=== PATIENT | female | born 1980 | race Caucasian/White ===

== ENCOUNTER 2017-03-05 09:30 | Inpatient (IN) | payer MEDICAID ==
[~2017-03-05] VITALS: Ht 152.4 cm; Wt 60.0 kg
[~2017-03-05 09:30] MED LIST: FERR27TA PO; PREN1TAB49 PO
[2017-03-05] MEDS ORDERED: MISOPROSTOL 200 MCG TAB PR PRN ×2 (10:00→21:30)
[2017-03-05] MEDS ORDERED: LACTATED RINGER'S 1,000 ML IV PRN (10:00)
[2017-03-05] MEDS ORDERED: BUTORPHANOL 2 MG INJ IV PRN ×2 (10:00)
[2017-03-05] MEDS ORDERED: CARBOPROST 250 MCG INJ IM PRN ×2 (10:00→21:30)
[2017-03-05] MEDS ORDERED: OXYTOCIN 30 UNITS/LR 500 ML IV SCH (10:00)
[2017-03-05] MEDS: LACTATED RINGER'S 1,000 ML IV SCH ×3 (10:00→16:47)
[2017-03-05] MEDS ORDERED: METHYLERGONOVINE 0.2 MG INJ IM PRN ×2 (10:00→21:30)
[2017-03-05] MEDS ORDERED: OXYTOCIN 30 UNITS/LR 500 ML IV PRN ×2 (10:00→21:30)
[2017-03-05] MEDS ORDERED: LIDOCAINE 1% (MPF) 30 ML INJ INJ PRN (10:00)
[2017-03-05 10:04] VITALS: BP 105/63; PULSE 57
[2017-03-05 10:12] LABS: ADD SCAN DIFF NO
[2017-03-05 10:18] LABS: BASOPHILS % 0.2 % (0.0-2.0); EOSINOPHILS % 0.4 % (0.0-7.0); HEMATOCRIT 36.8 % (37.0-47.0); HEMOGLOBIN 12.2 g/dl (12.0-16.0); LYMPHOCYTES # 1.5 10^3/ul (0.8-2.9); LYMPHOCYTES % 16.3 % (15.0-51.0); MEAN CORPUSCULAR HEMOGLOBIN 31.8 pg (29.0-33.0); MEAN CORPUSCULAR HGB CONC 33.2 g/dl (32.0-37.0); MEAN CORPUSCULAR VOLUME 95.8 fl (82.0-101.0); MEAN PLATELET VOLUME 10.2 fl (7.4-10.4); MONOCYTE # 0.5 10^3/ul (0.3-0.9); MONOCYTES % 5.4 % (0.0-11.0); NEUTROPHIL # 6.9 10^3/ul (1.6-7.5); NEUTROPHILS % 76.8 % (39.0-77.0); PLATELET COUNT 211 10^3/UL (140-415); RED BLOOD COUNT 3.84 10^6/ul (4.20-5.40); RED CELL DISTRIBUTION WIDTH 13.3 % (11.5-14.5); WHITE BLOOD COUNT 8.9 10^3/ul (4.8-10.8)
[2017-03-05 10:30] LABS: INR 0.91; PROTIME 12.2 Sec (12.2-14.2)
[2017-03-05 10:31] LABS: PARTIAL THROMBOPLASTIN TIME 27.7 Sec (25.0-35.0)
[2017-03-05] MEDS ORDERED: NALOXONE (0.4 MG/ML) INJ IV PRN (13:30)
[2017-03-05] MEDS ORDERED: ONDANSETRON 4 MG INJ IV PRN (13:30)
[2017-03-05] MEDS ORDERED: EPHEDrine SULFATE 50 MG/5 ML SYG IV PRN (13:30)
[2017-03-05] MEDS ORDERED: FENTAnyl 2MCG/ML-ROPIV 0.2% 100 ML BAG EPI SCH (13:30)
[2017-03-05] MEDS ORDERED: MINERAL OIL LIGHT 10 ML VIAL TOP ONE (17:00)
[2017-03-05] MEDS: OXYTOCIN 30 UNITS/LR 500 ML IV SCH ×2 (18:08→18:42)
--- NOTE | 2017-03-05 20:07 | HP ---
Date/Time of Note Date/Time of Note DATE: 03/05/17 TIME: 20:05 OB - History Hx of Present Chief Complaint: contractions Estimated Due Date: February 28, 2017 : 3 Para: 1 Spontaneous : 1 Therapeutic : 0 Care: Good Care Ultrasounds: Normal mid trimester US Obstetrical Complications: None Medical Complications: None Past Family/Social History * Past Medical, Surgical, Family and Obstetric Histories reviewed from chart. GBS Status: Negative OB Admission Exam Vital Signs Vital Signs Vital Signs Date Time Temp Pulse Resp B/P Pulse Ox O2 Delivery O2 Flow Rate FiO2 03/05/17 10:04 97.9 57 105/63 Physical Exam HEENT: WNL Heart: Rhythm Normal Lungs: Clear Abdomen: WNL Extremities: Normal Cervical Dilatation: 5cm Effacement: 50% Station: -1 Membranes: Intact Heart Rate: 120's Accelerations: Accelerations Present Varibility: Moderate Last 72 hours Lab Results CBC & BMP 03/05/17 10:06 OB Assessment/Plan Reason for admission: active labor Plan: Expectant Management SUSIE SUNG MD March 05, 2017 20:07
--- NOTE | 2017-03-05 20:13 | LDN ---
Date/Time of Note Date/Time of Note DATE: 03/05/17 TIME: 20:08 Delivery Summary over median episiotomy Weeks of Gestation 40 weeks and 5 days Placenta Delivered: Spontaneously Meconium: none Episiotomy: Yes Indication for episiotomy Recurrent heart decelerations Perineal laceration: 0 Laceration repair: Repair of median episiotomy with 3-0 Vicryl and 3-0 chromic Anesthesia type: Epidural Estimated blood loss: 300 Sponge & Needle done & correct: Yes All needle counts correct: Yes Any foreign bodies felt in the: No Problems: Delivery Information Sex Infant Sex: male Apgars 1 Minute: 8 5 Minute: 9 Suctioning Nose & mouth suctioned at kia: Yes Delee suction performed: No Umbilical Cord Umbilical cord with: 3 Vessels Cord presentations: nuchal cord Nuchal cord present X: 1 Cord Blood was obtained: Yes Mother & Baby Disposition Disposition Mom & Baby to Maternity; Good: Yes SUSIE SUNG MD March 05, 2017 20:13
[2017-03-05 20:30] VITALS: BP 106/65; PULSE 62; RESP 18
[2017-03-05] MEDS ORDERED: LACTATED RINGER'S 1,000 ML IV* SCH (21:24)
[2017-03-05] MEDS ORDERED: ACETAMINOPHEN 325 MG TAB PO PRN (21:30)
[2017-03-05] MEDS ORDERED: DIBUCAINE 1% 30 GM OINT PR PRN (21:30)
[2017-03-05] MEDS ORDERED: ACETAMINOPHEN/CODEINE #3 TAB PO PRN (21:30)
[2017-03-05] MEDS: WITCH HAZEL/GLYCERIN PAD PR PRN (22:02)
[2017-03-05] MEDS: BENZOCAINE 20% 56 ML SPRAY TOP PRN (22:02)
[2017-03-05] MEDS: IBUPROFEN 600 MG TAB PO SCH (23:58)
[2017-03-06 00:22] VITALS: BP 95/55; PULSE 67; RESP 18
[2017-03-06 04:00] VITALS: BP 92/58; PULSE 58; RESP 18
[2017-03-06] MEDS: IBUPROFEN 600 MG TAB PO SCH ×4 (05:48→23:41)
[2017-03-06 08:15] VITALS: BP 93/57; PULSE 60; RESP 18
[2017-03-06 08:34] LABS: ADD SCAN DIFF NO
[2017-03-06 08:39] LABS: BASOPHILS % 0.2 % (0.0-2.0); EOSINOPHILS # 0.1 10^3/ul (0.0-0.5); EOSINOPHILS % 0.5 % (0.0-7.0); HEMATOCRIT 31.3 % (37.0-47.0); HEMOGLOBIN 10.5 g/dl (12.0-16.0); LYMPHOCYTES # 1.7 10^3/ul (0.8-2.9); LYMPHOCYTES % 13.2 % (15.0-51.0); MEAN CORPUSCULAR HEMOGLOBIN 31.9 pg (29.0-33.0); MEAN CORPUSCULAR HGB CONC 33.5 g/dl (32.0-37.0); MEAN CORPUSCULAR VOLUME 95.1 fl (82.0-101.0); MEAN PLATELET VOLUME 10.5 fl (7.4-10.4); MONOCYTE # 0.7 10^3/ul (0.3-0.9); MONOCYTES % 5.3 % (0.0-11.0); NEUTROPHIL # 10.5 10^3/ul (1.6-7.5); PLATELET COUNT 196 10^3/UL (140-415); RED BLOOD COUNT 3.29 10^6/ul (4.20-5.40); RED CELL DISTRIBUTION WIDTH 13.2 % (11.5-14.5); WHITE BLOOD COUNT 13.1 10^3/ul (4.8-10.8)
[2017-03-06] MEDS: SENNA/DOCUSATE NA (8.6MG/50MG) TAB PO SCH ×2 (09:42→20:46)
[2017-03-06 16:00] VITALS: BP 99/61; PULSE 63; RESP 18
[2017-03-06 19:45] VITALS: BP 105/57; PULSE 75; RESP 19
--- NOTE | 2017-03-06 20:30 | QN ---
Documentation Comment No complaint Afebrile VSS Fundus Firm Lochia Scant PPD #1 Stable Routine pp care. SUSIE SUNG MD March 06, 2017 20:30
--- NOTE | 2017-03-06 20:46 | DS ---
Date/Time of Note Date/Time of Note DATE: 03/06/17 TIME: 20:45 Obstetrical Discharge Record Final Diagnosis Final Diagnosis: Term delivered Vaginal Delivery Obstetrical Delivery: Spontaneous, Episiotomy, Repaired Condition on Discharge Physical Assessment Voiding: Yes Bowel Movement: Yes Breast: Soft, non-tender Fundus: Firm Calf Tenderness: No Patient Condition: Stable SUSIE SUNG MD March 06, 2017 20:46
[2017-03-06 23:30] VITALS: BP 100/67; PULSE 67; RESP 20
[2017-03-07 04:15] VITALS: BP 99/57; PULSE 56; RESP 18
[2017-03-07] MEDS: IBUPROFEN 600 MG TAB PO SCH ×3 (05:45→17:12)
[2017-03-07 08:15] VITALS: BP 103/69; PULSE 56; RESP 18
[2017-03-07] MEDS ORDERED: DIPHTH/TET/ACEL PERTUSS (ADULT) 0.5 ML VIAL IM* ONE (09:00)
[2017-03-07] MEDS: SENNA/DOCUSATE NA (8.6MG/50MG) TAB PO SCH (10:04)
[2017-03-07 16:00] VITALS: BP 109/65; PULSE 65; RESP 17
[2017-03-07] MEDS: WITCH HAZEL/GLYCERIN PAD PR PRN (17:13)
[2017-03-07] MEDS: BENZOCAINE 20% 56 ML SPRAY TOP PRN (17:13)
== END 2017-03-07 18:30 | disposition home or self-care (01) | DRG 775 ==
LOC: OBT 09:30 → L-D 09:32 → OBT 09:38 → L-D 09:48 → PP1 20:39 → UNDODISIN 23:15
PROVIDERS: ADMIT Obstetrics & Gynecology; ATTEND Obstetrics & Gynecology
PROC: 10E0XZZ Delivery of Products of Conception, External Approach (ICD-10-PCS; principal; 2017-03-05)
PROC: 0W8NXZZ Division of Female Perineum, External Approach (ICD-10-PCS; 2017-03-05)
DX: O48.0 Post-term pregnancy (principal); O76 Abnormality in fetal heart rate and rhythm complicating labor and delivery; O69.1XX0 Labor and delivery complicated by cord around neck, with compression, not applicable or unspecified; Z3A.40 40 weeks gestation of pregnancy; Z37.0 Single live birth
CPT/HCPCS: 62319; 85025; 85610; 85730; 86592; 86900; 86901; 87340; 90715; 99464; G0463; J2210; J2590; J3010; J7120